=== PATIENT | male | born 1995 | race Caucasian/White ===

== ENCOUNTER 2017-02-20 19:03 | Emergency (ER) | payer SELFPAY ==
[~2017-02-20] VITALS: Ht 188 cm; Wt 86.2 kg
[2017-02-20] MEDS ORDERED: oxyCODONE/APAP 5/325 1 TAB TABLET PO ONE (19:30)
[2017-02-20] MEDS ORDERED: fentaNYL PF VIAL 100 MCG/2 ML VIAL IV ONE (19:30)
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
[2017-02-20 19:37] LABS: BASO # 0.1 x10^3/uL (0.0-0.2); BASO % 1 % (0-3); EOS % 1 % (0-3); HEMATOCRIT 42.9 % (39.0-53.0); HEMOGLOBIN 14.6 g/dL (13.0-17.5); LYMPH # 1.9 x10^3/uL (1.0-4.8); LYMPH % 20 % (24-48); MEAN CORPUSCULAR HEMOGLOBIN 32 pg (25-35); MEAN CORPUSCULAR HGB CONC 34 g/dL (31-37); MEAN CORPUSCULAR VOLUME 93 fL (79-100); MONO % 4 % (0-9); NEUT % 73 % (31-73); PLATELET COUNT 163 x10^3/uL (140-400); WHITE BLOOD COUNT 9.7 x10^3/uL (4.0-11.0)
[2017-02-20] MEDS ORDERED: ONDANSETRON PF 4 MG/2 ML VIAL. ONE (19:41)
[2017-02-20] MEDS ORDERED: ONDANSETRON PF 4 MG/2 ML VIAL. IV ONE (19:45)
--- NOTE | 2017-02-20 19:45 | RAD ---
Indication: Left eye trauma and headache. Axial imaging through the orbits was performed without contrast. Sagittal and coronal reformations were also performed. One or more of the following individualized dose reduction techniques were utilized for this examination: 1. Automated exposure control 2. Adjustment of the mA and/or kV according to patient size 3. Use of iterative reconstruction technique There is a large amount of preseptal gas on the left. There is a fracture through the medial wall of the left orbit. The lateral wall appears intact. The orbital floor appears intact. Both globes are unremarkable. No retro-orbital hematoma is identified. There is mucosal thickening of ethmoid air cells. Trace mucosal thickening of the maxillary sinuses is seen. No displaced nasal bone fracture is identified. There are postop changes of the right frontal sinus anterior wall. Sphenoid and mastoids are well aerated. IMPRESSION: Left medial orbital wall fracture with a large amount of preseptal gas. No other significant abnormality is detected. Electronically signed by: Po Cuadra MD (02/20/2017 7:42 PM)
[2017-02-20 19:47] LABS: INR 1.1 (0.8-1.1); PROTHROMBIN TIME PATIENT 13.7 SEC (11.7-14.0)
--- NOTE | 2017-02-20 19:47 | RAD ---
Indication: Left eye trauma and headache. Axial imaging through the brain was performed without contrast. One or more of the following individualized dose reduction techniques were utilized for this examination: 1. Automated exposure control 2. Adjustment of the mA and/or kV according to patient size 3. Use of iterative reconstruction technique Comparison is made with prior head CT from 03/07/2012. The ventricles and sulci are within normal limits. No sulcal effacement, midline shift or hemorrhage is detected. The cisterns are patent. Fracture through the left orbit medial wall and preseptal gas is noted and described on CT orbit study. IMPRESSION: No acute intracranial process is detected. Electronically signed by: Po Cuadra MD (02/20/2017 7:43 PM)
[2017-02-20 19:58] LABS: CALCIUM 8.9 mg/dL (8.5-10.1); CREATININE 1.2 mg/dL (0.7-1.3); GFR 75.7; POTASSIUM 3.8 mmol/L (3.5-5.1)
[2017-02-20 20:03] LABS: ALBUMIN 4.2 g/dL (3.4-5.0); ALBUMIN/GLOBULIN RATIO 1.4 (1.0-1.7); TOTAL BILIRUBIN 0.3 mg/dL (0.2-1.0); TOTAL PROTEIN 7.3 g/dL (6.4-8.2)
[2017-02-20 20:25] VITALS: BP 95/56
[2017-02-20] MEDS ORDERED: OXYC-323 PO (20:42)
[2017-02-20] MEDS ORDERED: ONDA4TAB10 PO (20:42)
[2017-02-20] MEDS ORDERED: AMOX1TAB61 PO (20:42)
== END 2017-02-20 20:45 | disposition home or self-care (01) ==
LOC: ER 19:03
DX: S02.82XA Fracture of other specified skull and facial bones, left side, initial encounter for closed fracture (principal); F10.10 Alcohol abuse, uncomplicated; F12.10 Cannabis abuse, uncomplicated; Z98.890 Other specified postprocedural states; W52.XXXA Crushed, pushed or stepped on by crowd or human stampede, initial encounter; Y93.89 Activity, other specified; Y92.89 Other specified places as the place of occurrence of the external cause; Y99.8 Other external cause status
CPT/HCPCS: 36415; 70450; 70480; 80053; 80320; 85027; 85610; 85730; 96374; 96375; 99285; J2405; J3010; G0480

== ENCOUNTER 2021-04-23 18:52 | Observation (INO) | payer BC ==
[~2021-04-23] VITALS: Ht 188 cm; Wt 88.1 kg
[~2021-04-23 18:52] MED LIST: AMOX1TAB61 PO; ONDA4TAB10 PO; OXYC1TAB15 PO
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
[2021-04-23 19:06] LABS: BASO # 0.1 x10^3/uL (0.0-0.2); BASO % 1 % (0-3); EOS # 0.3 x10^3/uL (0.0-0.7); EOS % 3 % (0-3); HEMATOCRIT 42.3 % (39.0-53.0); HEMOGLOBIN 14.6 g/dL (13.0-17.5); LYMPH % 25 % (24-48); MEAN CORPUSCULAR HEMOGLOBIN 32 pg (25-35); MEAN CORPUSCULAR HGB CONC 35 g/dL (31-37); MEAN CORPUSCULAR VOLUME 93 fL (79-100); MONO # 0.7 x10^3/uL (0.0-1.1); MONO % 8 % (0-9); NEUT # 5.3 x10^3/uL (1.8-7.7); NEUT % 64 % (31-73); PLATELET COUNT 225 x10^3/uL (140-400); RED BLOOD COUNT 4.53 x10^6/uL (4.30-5.70); WHITE BLOOD COUNT 8.4 x10^3/uL (4.0-11.0)
[2021-04-23] MEDS ORDERED: DIPH,PERTUSS(ACELL),TET VAC/PF 0.5 ML SYRINGE. VAX IM ONE (19:15)
[2021-04-23] MEDS ORDERED: fentaNYL PF VIAL 100 MCG/2 ML VIAL IVP ONE (19:15)
[2021-04-23 19:16] LABS: PROTHROMBIN TIME PATIENT 13.6 SEC (11.7-14.0)
[2021-04-23 19:20] LABS: CREATININE 1.2 mg/dL (0.7-1.3); GFR 73.2; POTASSIUM 3.9 mmol/L (3.5-5.1)
[2021-04-23 19:27] LABS: ALBUMIN 3.9 g/dL (3.4-5.0); ALBUMIN/GLOBULIN RATIO 1.4 (1.0-1.7); TOTAL BILIRUBIN 0.3 mg/dL (0.2-1.0); TOTAL PROTEIN 6.7 g/dL (6.4-8.2)
[2021-04-23] MEDS ORDERED: ONDANSETRON PF 4 MG/2 ML VIAL. IVP ONE (19:45)
[2021-04-23] MEDS ORDERED: HYDROmorphone 2 MG/ML VIAL IVP ONE (19:45)
--- NOTE | 2021-04-23 19:53 | PDOC1 ---
History and Physical Date of Admission Date of Admission DATE: 04/23/21 TIME: 19:38 Identification/Chief Complaint Chief Complaint Snakebite Source Source: Patient History of Present Illness History of Present Illness Patient is a 25-year-old male with no significant past medical history, who presents to the ED via EMS for evaluation after snakebite this evening. Patient states he was getting in the bathtub around 6 PM to take a shower, when he reports seeing a copperhead snake bite his left foot. Labs on admission were largely unremarkable. He received tetanus and fentanyl in the ED. He has not received his COVID-19 vaccination. I discussion with Dr. Coulter, will admit patient for observation and pain management overnight. Past Medical History Past Medical History Denies significant past medical history Past Surgical History Past Surgical History right eye surgery, facial surgery Family History Family History Denies significant family history Social History Smoke: 1 pack per day ALCOHOL: heavy Drugs: Marijuana Current Medications Current Medications Current Medications Fentanyl Citrate (Fentanyl 2ml Vial) 100 mcg 1X ONCE IVP Last administered on 04/23/21at 19:26; Start 04/23/21 at 19:15; Stop 04/23/21 at 19:16; Status DC Diphtheria/ Tetanus/Acell Pertussis (ADACEL TDap SYRINGE) 0.5 ml ONCE ONCE VAX IM Last administered on 04/23/21at 19:24; Start 04/23/21 at 19:15; Stop 04/23/21 at 19:16; Status DC Active Scripts Active Augmentin 875-125 Tablet (Amoxicillin/Potassium Clav) 1 Each Tablet 1 Tab PO BID Zofran Odt (Ondansetron) 4 Mg Tab.rapdis 4 Mg PO BID PRN Percocet 5-325 Mg Tablet (Oxycodone/Acetaminophen) 1 Each Tablet 1 Tab PO PRN Q6HRS PRN Allergies Allergies: Coded Allergies: codeine (Verified Allergy, Intermediate, nausea and vomiting, 04/23/21) ROS Review of System GENERAL: Copperhead snake bite. No history of weight change, weakness or fevers. SKIN: No bruising, hair changes or rashes. EYES: No blurred, double or loss of vision. NOSE AND THROAT: No history of nosebleeds, hoarseness or sore throat. HEART: Denies chest pain, denies palpitations. LUNGS: Denies cough, hemoptysis, wheezing or shortness of breath. GASTROINTESTINAL: Denies nausea, vomiting, abdominal pain. GENITOURINARY: Denies dysuria, frequency, urgency, hematuria. NEUROLOGIC: Denies history of numbness, tingling, tremor or weakness. PSYCHIATRIC: Denies anxiety, denies depression. ENDOCRINE: No history of heat or cold intolerance, polyuria or polydipsia. EXTREMITIES: Right foot pain. Denies muscle weakness, joint pain, pain on walking or stiffness. Physical Exam Physical Exam General: Alert, Oriented X3, Cooperative, moderate distress HEENT: PERRLA, EOMI Lungs: Clear to auscultation, Normal air movement Heart: RRR, no murmurs Cardiovascular: S1, S2 Abdomen: Normal bowel sounds, Soft, No tenderness Extremities: Left foot with minimal swelling. No clubbing, No cyanosis Skin: No rashes, No significant lesion Neuro: Normal speech, Normal tone, Sensation intact Psych/Mental Status: Mental status NL, Mood NL Vitals Vitals Vital Signs Date Time Temp Pulse Resp B/P (MAP) Pulse Ox O2 Delivery O2 Flow Rate FiO2 04/23/21 19:26 12 100 Room Air 04/23/21 18:52 98.5 61 132/56 (69) 98.5 Labs Labs Laboratory Tests Test 04/23/21 18:55 White Blood Count 8.4 x10^3/uL (4.0-11.0) Red Blood Count 4.53 x10^6/uL (4.30-5.70) Hemoglobin 14.6 g/dL (13.0-17.5) Hematocrit 42.3 % (39.0-53.0) Mean Corpuscular Volume 93 fL (79-100) Mean Corpuscular Hemoglobin 32 pg (25-35) Mean Corpuscular Hemoglobin Concent 35 g/dL (31-37) Red Cell Distribution Width 13.0 % (11.5-14.5) Platelet Count 225 x10^3/uL (140-400) Neutrophils (%) (Auto) 64 % (31-73) Lymphocytes (%) (Auto) 25 % (24-48) Monocytes (%) (Auto) 8 % (0-9) Eosinophils (%) (Auto) 3 % (0-3) Basophils (%) (Auto) 1 % (0-3) Neutrophils # (Auto) 5.3 x10^3/uL (1.8-7.7) Lymphocytes # (Auto) 2.0 x10^3/uL (1.0-4.8) Monocytes # (Auto) 0.7 x10^3/uL (0.0-1.1) Eosinophils # (Auto) 0.3 x10^3/uL (0.0-0.7) Basophils # (Auto) 0.1 x10^3/uL (0.0-0.2) Prothrombin Time 13.6 SEC (11.7-14.0) Prothromb Time International Ratio 1.0 (0.8-1.1) Fibrinogen 298 mg/dL (200-440) Sodium Level 138 mmol/L (136-145) Potassium Level 3.9 mmol/L (3.5-5.1) Chloride Level 103 mmol/L (98-107) Carbon Dioxide Level 28 mmol/L (21-32) Anion Gap 7 (6-14) Blood Urea Nitrogen 17 mg/dL (8-26) Creatinine 1.2 mg/dL (0.7-1.3) Estimated GFR (Cockcroft-Gault) 73.2 BUN/Creatinine Ratio 14 (6-20) Glucose Level 101 mg/dL (70-99) Calcium Level 9.0 mg/dL (8.5-10.1) Total Bilirubin 0.3 mg/dL (0.2-1.0) Aspartate Amino Transf (AST/SGOT) 23 U/L (15-37) Alanine Aminotransferase (ALT/SGPT) 40 U/L (16-63) Alkaline Phosphatase 95 U/L (46-116) Total Protein 6.7 g/dL (6.4-8.2) Albumin 3.9 g/dL (3.4-5.0) Albumin/Globulin Ratio 1.4 (1.0-1.7) Laboratory Tests Test 04/23/21 18:55 White Blood Count 8.4 x10^3/uL (4.0-11.0) Red Blood Count 4.53 x10^6/uL (4.30-5.70) Hemoglobin 14.6 g/dL (13.0-17.5) Hematocrit 42.3 % (39.0-53.0) Mean Corpuscular Volume 93 fL (79-100) Mean Corpuscular Hemoglobin 32 pg (25-35) Mean Corpuscular Hemoglobin Concent 35 g/dL (31-37) Red Cell Distribution Width 13.0 % (11.5-14.5) Platelet Count 225 x10^3/uL (140-400) Neutrophils (%) (Auto) 64 % (31-73) Lymphocytes (%) (Auto) 25 % (24-48) Monocytes (%) (Auto) 8 % (0-9) Eosinophils (%) (Auto) 3 % (0-3) Basophils (%) (Auto) 1 % (0-3) Neutrophils # (Auto) 5.3 x10^3/uL (1.8-7.7) Lymphocytes # (Auto) 2.0 x10^3/uL (1.0-4.8) Monocytes # (Auto) 0.7 x10^3/uL (0.0-1.1) Eosinophils # (Auto) 0.3 x10^3/uL (0.0-0.7) Basophils # (Auto) 0.1 x10^3/uL (0.0-0.2) Prothrombin Time 13.6 SEC (11.7-14.0) Prothromb Time International Ratio 1.0 (0.8-1.1) Fibrinogen 298 mg/dL (200-440) Sodium Level 138 mmol/L (136-145) Potassium Level 3.9 mmol/L (3.5-5.1) Chloride Level 103 mmol/L (98-107) Carbon Dioxide Level 28 mmol/L (21-32) Anion Gap 7 (6-14) Blood Urea Nitrogen 17 mg/dL (8-26) Creatinine 1.2 mg/dL (0.7-1.3) Estimated GFR (Cockcroft-Gault) 73.2 BUN/Creatinine Ratio 14 (6-20) Glucose Level 101 mg/dL (70-99) Calcium Level 9.0 mg/dL (8.5-10.1) Total Bilirubin 0.3 mg/dL (0.2-1.0) Aspartate Amino Transf (AST/SGOT) 23 U/L (15-37) Alanine Aminotransferase (ALT/SGPT) 40 U/L (16-63) Alkaline Phosphatase 95 U/L (46-116) Total Protein 6.7 g/dL (6.4-8.2) Albumin 3.9 g/dL (3.4-5.0) Albumin/Globulin Ratio 1.4 (1.0-1.7) VTE Prophylaxis Ordered VTE Prophylaxis Devices: Yes VTE Pharmacological Prophylaxi: No Assessment/Plan Assessment/Plan Copperhead snake bite Plan: I had discussion with Dr. Coulter in the ED; will admit patient for observation and keep in the ER for at least 6 hours to monitor for swelling and need for antiantivenom Tdap provided in the ED We will provide pain management No fluid to culture, no need for empiric antibiotics at this time. FEN - Regular diet PPX - compression stockings FULL CODE Dispo - observation for above Justifications for Admission Other Justification TAYLOR JEFFRIES MD Apr 23, 2021 19:53
[2021-04-23] MEDS ORDERED: ZOLPIDEM 5 MG TABLET. PO PRN (20:00)
[2021-04-23] MEDS ORDERED: oxyCODONE/APAP 5/325 1 TAB TABLET PO PRN (20:00)
[2021-04-23] MEDS ORDERED: MAGNESIUM HYDROXIDE 2,400 MG/30 ML ORAL.SUSP. PO PRN (20:00)
[2021-04-23] MEDS ORDERED: ACETAMINOPHEN 325 MG TABLET. PO PRN (20:00)
[2021-04-23] MEDS ORDERED: MORPHINE SULFATE 10 MG/ML VIAL. IV PRN (20:00)
[2021-04-23] MEDS ORDERED: oxyCODONE IR 5 MG TABLET PO PRN (20:00)
[2021-04-23] MEDS ORDERED: IBUPROFEN 400 MG TABLET. PO PRN (20:00)
[2021-04-23] MEDS ORDERED: ONDANSETRON PF 4 MG/2 ML VIAL. IVP PRN (20:00)
[2021-04-23] MEDS ORDERED: HYDROcodone/APAP 5/325MG 1 TAB TABLET PO PRN (20:00)
[2021-04-23 21:02] LABS: BASO # 0.1 x10^3/uL (0.0-0.2); BASO % 1 % (0-3); EOS # 0.3 x10^3/uL (0.0-0.7); EOS % 4 % (0-3); HEMATOCRIT 42.4 % (39.0-53.0); HEMOGLOBIN 14.4 g/dL (13.0-17.5); LYMPH # 1.9 x10^3/uL (1.0-4.8); LYMPH % 27 % (24-48); MEAN CORPUSCULAR HEMOGLOBIN 32 pg (25-35); MEAN CORPUSCULAR HGB CONC 34 g/dL (31-37); MEAN CORPUSCULAR VOLUME 94 fL (79-100); MONO # 0.5 x10^3/uL (0.0-1.1); MONO % 7 % (0-9); NEUT # 4.5 x10^3/uL (1.8-7.7); NEUT % 62 % (31-73); PLATELET COUNT 200 x10^3/uL (140-400); RED CELL DISTRIBUTION WIDTH 13.3 % (11.5-14.5); WHITE BLOOD COUNT 7.3 x10^3/uL (4.0-11.0)
[2021-04-23 21:09] LABS: PROTHROMBIN TIME PATIENT 13.8 SEC (11.7-14.0)
[2021-04-23 21:10] LABS: CALCIUM 8.6 mg/dL (8.5-10.1); CREATININE 1.1 mg/dL (0.7-1.3); GFR 80.9; POTASSIUM 3.7 mmol/L (3.5-5.1)
[2021-04-23 21:16] LABS: ALBUMIN 3.7 g/dL (3.4-5.0); ALBUMIN/GLOBULIN RATIO 1.4 (1.0-1.7); TOTAL BILIRUBIN 0.2 mg/dL (0.2-1.0); TOTAL PROTEIN 6.3 g/dL (6.4-8.2)
[2021-04-23 22:40] VITALS: BP 120/65
[2021-04-23] MEDS ORDERED: FAMOTIDINE 20 MG TABLET. PO ONE (23:30)
[2021-04-24 02:08] LABS: BASO % 1 % (0-3); EOS # 0.3 x10^3/uL (0.0-0.7); EOS % 4 % (0-3); HEMATOCRIT 43.1 % (39.0-53.0); HEMOGLOBIN 14.7 g/dL (13.0-17.5); LYMPH # 1.8 x10^3/uL (1.0-4.8); LYMPH % 25 % (24-48); MEAN CORPUSCULAR HEMOGLOBIN 32 pg (25-35); MEAN CORPUSCULAR HGB CONC 34 g/dL (31-37); MEAN CORPUSCULAR VOLUME 95 fL (79-100); MONO # 0.5 x10^3/uL (0.0-1.1); MONO % 7 % (0-9); NEUT # 4.5 x10^3/uL (1.8-7.7); NEUT % 63 % (31-73); PLATELET COUNT 186 x10^3/uL (140-400); RED BLOOD COUNT 4.56 x10^6/uL (4.30-5.70); RED CELL DISTRIBUTION WIDTH 13.2 % (11.5-14.5); WHITE BLOOD COUNT 7.2 x10^3/uL (4.0-11.0)
[2021-04-24 02:17] LABS: PROTHROMBIN TIME PATIENT 13.8 SEC (11.7-14.0)
[2021-04-24 02:23] LABS: ALBUMIN 3.6 g/dL (3.4-5.0); ALBUMIN/GLOBULIN RATIO 1.4 (1.0-1.7); CALCIUM 8.7 mg/dL (8.5-10.1); GFR 90.3; POTASSIUM 3.5 mmol/L (3.5-5.1); TOTAL BILIRUBIN 0.3 mg/dL (0.2-1.0); TOTAL PROTEIN 6.2 g/dL (6.4-8.2)
[2021-04-24 03:00] VITALS: BP 101/49
[2021-04-24 07:00] VITALS: BP 122/57
--- NOTE | 2021-04-24 09:00 | PDOC ---
PROGRESS NOTES Date of Service: DATE: 04/24/21 TIME: 09:00 Chief Complaint Chief Complaint VTE Prophylaxis Ordered VTE Prophylaxis Devices: Yes VTE Pharmacological Prophylaxi: No Assessment/Plan Assessment/Plan Copperhead snake bite Plan: admit patient for observation and keep in the ER for at least 6 hours to monitor for swelling and need for antiantivenom Tdap provided in the ED We will provide pain management No fluid to culture, no need for empiric antibiotics at this time. FEN - Regular diet PPX - compression stockings FULL CODE Dispo - observation for above Justifications for Admission Justifications for Admission Other Justification History of Present Illness History of Present Illness Identification/Chief Complaint Chief Complaint Snakebite Source Source: Patient History of Present Illness History of Present Illness Patient is a 25-year-old male with no significant past medical history, who presents to the ED via EMS for evaluation after snakebite this evening. Patient states he was getting in the bathtub around 6 PM to take a shower, when he reports seeing a copperhead snake bite his left foot. Labs on admission were largely unremarkable. He received tetanus and fentanyl in the ED. He has not received his COVID-19 vaccination. I discussion with Dr. Coulter, will admit patient for observation and pain management overnight. Past Medical History Past Medical History Denies significant past medical history Past Surgical History Past Surgical History right eye surgery, facial surgery Family History Family History Denies significant family history Social History Smoke: 1 pack per day ALCOHOL: heavy Drugs: Marijuana Current Medications Current Medications Current Medications Fentanyl Citrate (Fentanyl 2ml Vial) 100 mcg 1X ONCE IVP Last administered on 04/23/21at 19:26; Start 04/23/21 at 19:15; Stop 04/23/21 at 19:16; Status DC Diphtheria/ Tetanus/Acell Pertussis (ADACEL TDap SYRINGE) 0.5 ml ONCE ONCE VAX IM Last administered on 04/23/21at 19:24; Start 04/23/21 at 19:15; Stop 04/23/21 at 19:16; Status DC Active Scripts Active Augmentin 875-125 Tablet (Amoxicillin/Potassium Clav) 1 Each Tablet 1 Tab PO BID Zofran Odt (Ondansetron) 4 Mg Tab.rapdis 4 Mg PO BID PRN Percocet 5-325 Mg Tablet (Oxycodone/Acetaminophen) 1 Each Tablet 1 Tab PO PRN Q6HRS PRN Allergies Allergies: Coded Allergies: codeine (Verified Allergy, Intermediate, nausea and vomiting, 04/23/21) ROS Review of System GENERAL: Copperhead snake bite. No history of weight change, weakness or fevers. SKIN: No bruising, hair changes or rashes. EYES: No blurred, double or loss of vision. NOSE AND THROAT: No history of nosebleeds, hoarseness or sore throat. HEART: Denies chest pain, denies palpitations. LUNGS: Denies cough, hemoptysis, wheezing or shortness of breath. GASTROINTESTINAL: Denies nausea, vomiting, abdominal pain. GENITOURINARY: Denies dysuria, frequency, urgency, hematuria. NEUROLOGIC: Denies history of numbness, tingling, tremor or weakness. PSYCHIATRIC: Denies anxiety, denies depression. ENDOCRINE: No history of heat or cold intolerance, polyuria or polydipsia. EXTREMITIES: Right foot pain. Denies muscle weakness, joint pain, pain on walking or stiffness. Vitals Vitals Vital Signs Date Time Temp Pulse Resp B/P (MAP) Pulse Ox O2 Delivery O2 Flow Rate FiO2 04/24/21 07:00 97.4 56 18 122/57 (78) 97 Room Air 97.4 Physical Exam Physical Exam General: Alert, Oriented X3, Cooperative, no distress HEENT: PERRLA, EOMI Lungs: Clear to auscultation, Normal air movement Heart: RRR, no murmurs Cardiovascular: S1, S2 Abdomen: Normal bowel sounds, Soft, No tenderness Extremities: Left foot with minimal swelling. No clubbing, No cyanosis Skin: No rashes, No significant lesion mild swelling present Neuro: Normal speech, Normal tone, Sensation intact Psych/Mental Status: Mental status NL, Mood NL General: Alert, Oriented X3, Cooperative, No acute distress Heart: Regular rate Lungs: Clear Abdomen: Soft Extremities: No cyanosis Skin: No significant lesion Labs LABS Laboratory Tests Test 04/23/21 18:55 04/23/21 20:54 04/24/21 02:00 White Blood Count 8.4 x10^3/uL (4.0-11.0) 7.3 x10^3/uL (4.0-11.0) 7.2 x10^3/uL (4.0-11.0) Red Blood Count 4.53 x10^6/uL (4.30-5.70) 4.50 x10^6/uL (4.30-5.70) 4.56 x10^6/uL (4.30-5.70) Hemoglobin 14.6 g/dL (13.0-17.5) 14.4 g/dL (13.0-17.5) 14.7 g/dL (13.0-17.5) Hematocrit 42.3 % (39.0-53.0) 42.4 % (39.0-53.0) 43.1 % (39.0-53.0) Mean Corpuscular Volume 93 fL (79-100) 94 fL (79-100) 95 fL (79-100) Mean Corpuscular Hemoglobin 32 pg (25-35) 32 pg (25-35) 32 pg (25-35) Mean Corpuscular Hemoglobin Concent 35 g/dL (31-37) 34 g/dL (31-37) 34 g/dL (31-37) Red Cell Distribution Width 13.0 % (11.5-14.5) 13.3 % (11.5-14.5) 13.2 % (11.5-14.5) Platelet Count 225 x10^3/uL (140-400) 200 x10^3/uL (140-400) 186 x10^3/uL (140-400) Neutrophils (%) (Auto) 64 % (31-73) 62 % (31-73) 63 % (31-73) Lymphocytes (%) (Auto) 25 % (24-48) 27 % (24-48) 25 % (24-48) Monocytes (%) (Auto) 8 % (0-9) 7 % (0-9) 7 % (0-9) Eosinophils (%) (Auto) 3 % (0-3) 4 % (0-3) 4 % (0-3) Basophils (%) (Auto) 1 % (0-3) 1 % (0-3) 1 % (0-3) Neutrophils # (Auto) 5.3 x10^3/uL (1.8-7.7) 4.5 x10^3/uL (1.8-7.7) 4.5 x10^3/uL (1.8-7.7) Lymphocytes # (Auto) 2.0 x10^3/uL (1.0-4.8) 1.9 x10^3/uL (1.0-4.8) 1.8 x10^3/uL (1.0-4.8) Monocytes # (Auto) 0.7 x10^3/uL (0.0-1.1) 0.5 x10^3/uL (0.0-1.1) 0.5 x10^3/uL (0.0-1.1) Eosinophils # (Auto) 0.3 x10^3/uL (0.0-0.7) 0.3 x10^3/uL (0.0-0.7) 0.3 x10^3/uL (0.0-0.7) Basophils # (Auto) 0.1 x10^3/uL (0.0-0.2) 0.1 x10^3/uL (0.0-0.2) 0.0 x10^3/uL (0.0-0.2) Prothrombin Time 13.6 SEC (11.7-14.0) 13.8 SEC (11.7-14.0) 13.8 SEC (11.7-14.0) Prothromb Time International Ratio 1.0 (0.8-1.1) 1.1 (0.8-1.1) 1.1 (0.8-1.1) Fibrinogen 298 mg/dL (200-440) 294 mg/dL (200-440) 289 mg/dL (200-440) Sodium Level 138 mmol/L (136-145) 138 mmol/L (136-145) 138 mmol/L (136-145) Potassium Level 3.9 mmol/L (3.5-5.1) 3.7 mmol/L (3.5-5.1) 3.5 mmol/L (3.5-5.1) Chloride Level 103 mmol/L (98-107) 104 mmol/L (98-107) 107 mmol/L (98-107) Carbon Dioxide Level 28 mmol/L (21-32) 30 mmol/L (21-32) 26 mmol/L (21-32) Anion Gap 7 (6-14) 4 (6-14) 5 (6-14) Blood Urea Nitrogen 17 mg/dL (8-26) 17 mg/dL (8-26) 16 mg/dL (8-26) Creatinine 1.2 mg/dL (0.7-1.3) 1.1 mg/dL (0.7-1.3) 1.0 mg/dL (0.7-1.3) Estimated GFR (Cockcroft-Gault) 73.2 80.9 90.3 BUN/Creatinine Ratio 14 (6-20) 15 (6-20) 16 (6-20) Glucose Level 101 mg/dL (70-99) 108 mg/dL (70-99) 118 mg/dL (70-99) Calcium Level 9.0 mg/dL (8.5-10.1) 8.6 mg/dL (8.5-10.1) 8.7 mg/dL (8.5-10.1) Total Bilirubin 0.3 mg/dL (0.2-1.0) 0.2 mg/dL (0.2-1.0) 0.3 mg/dL (0.2-1.0) Aspartate Amino Transf (AST/SGOT) 23 U/L (15-37) 16 U/L (15-37) 18 U/L (15-37) Alanine Aminotransferase (ALT/SGPT) 40 U/L (16-63) 38 U/L (16-63) 35 U/L (16-63) Alkaline Phosphatase 95 U/L (46-116) 87 U/L (46-116) 88 U/L (46-116) Total Protein 6.7 g/dL (6.4-8.2) 6.3 g/dL (6.4-8.2) 6.2 g/dL (6.4-8.2) Albumin 3.9 g/dL (3.4-5.0) 3.7 g/dL (3.4-5.0) 3.6 g/dL (3.4-5.0) Albumin/Globulin Ratio 1.4 (1.0-1.7) 1.4 (1.0-1.7) 1.4 (1.0-1.7) Assessment and Plan Assessmemt and Plan Problems Medical Problems: (1) Venomous snake bite Status: Acute Abstract Background: Crotalidae Polyvalent Immune Shaji (Ovine) has been the only antivenom commercially available in the [place] since 2006 for treatment of Crotalinae envenomation. Late coagulopathy can occur or recur after clearance of Shaji antivenom, often after hospital discharge, lasting in some cases more than 2 weeks. There have been serious, even fatal, bleeding complications associated with recurrence phenomena. Frequent follow-up is required, and additional intervention or hospitalization is often necessary. F(ab')2 immunoglobulin derivatives have longer plasma half life than do Shaji. We hypothesized that F(ab')2 antivenom would be superior to Shaji in the prevention of late coagulopathy following treatment of patients with Crotalinae envenomation. Methods: We conducted a prospective, double-blind, randomized clinical trial, comparing late coagulopathy in snakebitten patients treated with F(ab')2 with maintenance doses [F(ab')2/F(ab')2], or F(ab')2 with placebo maintenance doses [F(ab')2/placebo], versus Shaji with maintenance doses [Shaji/Shaji]. The primary efficacy endpoint was coagulopathy (platelet count < 150 K/mm(3), fibrinogen level < 150 mg/dL) between end of maintenance dosing and day 8. Results: 121 patients were randomized at 18 clinical sites and received at least one dose of study drug. 114 completed the study. Of these, 11/37 (29.7%) in the Shaji/Shaji cohort experienced late coagulopathy versus 4/39 (10.3%, p < 0.05) in the F(ab')2/F(ab')2 cohort and 2/38 (5.3%, p < 0.05) in the F(ab')2/placebo cohort. The lowest heterologous protein exposure was with F(ab')2/placebo. No serious adverse events were related to study drug. In each study arm, one patient experienced an acute serum reaction and one experienced serum sickness. Conclusions: In this study, management of coagulopathic Crotalinae envenomation with [id number] F(ab')2 antivenom, with or without maintenance dosing, reduced the risk of subacute coagulopathy and bleeding following treatment of envenomation. Keywords: Antivenins; Snakes; Toxinology. Abstract Our objective was to determine the prevalence of poisonous snakebite victims admitted to a regional trauma center in [facility] over a 10-year period, as well as the type of snake, grade of envenomation, treatment administered, morbidity and mortality, and outcome. Records of patients admitted to the center for snakebite from a [place] catch[place] area during the 10-year period (September 1983 to September 1993) were retroactively reviewed. Sixty-three (63) bites in 62 victims of venomous snakebites were treated. The snake distribution was rattlesnake: 19 (30%), copperhead: 18 (29%), cottonmouth moccasin: 8 (12%), unknown: 18 (29%). Envenomation grades were Grade I: 20 (32%), Grade II: 24 (38%), Grade III: 10 (16%), and Grade IV: 9 (14%). Fourteen of 19 (74%) Grades III and IV envenomations were from rattlesnakes. Antivenin was used in all Grade IV and half of the Grade III envenomations. Antivenin was administered within 3 hours of injury in all but one case. Five patients had surgery. Two patients (both Grade I) developed anaphylaxes from antivenin given before hospitalization. All patients recovered. An average of 6 snakebites were treated each year. Expeditious transport, attention to the type of snake inflicting the bite, and judicious use of antivenin will result in a favorable outcome for the snakebite victim. Comment Review of Relevant I have reviewed the following items jamison (where applicable) has been applied. Labs Laboratory Tests Test 04/23/21 18:55 04/23/21 20:54 04/24/21 02:00 White Blood Count 8.4 x10^3/uL (4.0-11.0) 7.3 x10^3/uL (4.0-11.0) 7.2 x10^3/uL (4.0-11.0) Red Blood Count 4.53 x10^6/uL (4.30-5.70) 4.50 x10^6/uL (4.30-5.70) 4.56 x10^6/uL (4.30-5.70) Hemoglobin 14.6 g/dL (13.0-17.5) 14.4 g/dL (13.0-17.5) 14.7 g/dL (13.0-17.5) Hematocrit 42.3 % (39.0-53.0) 42.4 % (39.0-53.0) 43.1 % (39.0-53.0) Mean Corpuscular Volume 93 fL (79-100) 94 fL (79-100) 95 fL (79-100) Mean Corpuscular Hemoglobin 32 pg (25-35) 32 pg (25-35) 32 pg (25-35) Mean Corpuscular Hemoglobin Concent 35 g/dL (31-37) 34 g/dL (31-37) 34 g/dL (31-37) Red Cell Distribution Width 13.0 % (11.5-14.5) 13.3 % (11.5-14.5) 13.2 % (11.5-14.5) Platelet Count 225 x10^3/uL (140-400) 200 x10^3/uL (140-400) 186 x10^3/uL (140-400) Neutrophils (%) (Auto) 64 % (31-73) 62 % (31-73) 63 % (31-73) Lymphocytes (%) (Auto) 25 % (24-48) 27 % (24-48) 25 % (24-48) Monocytes (%) (Auto) 8 % (0-9) 7 % (0-9) 7 % (0-9) Eosinophils (%) (Auto) 3 % (0-3) 4 % (0-3) 4 % (0-3) Basophils (%) (Auto) 1 % (0-3) 1 % (0-3) 1 % (0-3) Neutrophils # (Auto) 5.3 x10^3/uL (1.8-7.7) 4.5 x10^3/uL (1.8-7.7) 4.5 x10^3/uL (1.8-7.7) Lymphocytes # (Auto) 2.0 x10^3/uL (1.0-4.8) 1.9 x10^3/uL (1.0-4.8) 1.8 x10^3/uL (1.0-4.8) Monocytes # (Auto) 0.7 x10^3/uL (0.0-1.1) 0.5 x10^3/uL (0.0-1.1) 0.5 x10^3/uL (0.0-1.1) Eosinophils # (Auto) 0.3 x10^3/uL (0.0-0.7) 0.3 x10^3/uL (0.0-0.7) 0.3 x10^3/uL (0.0-0.7) Basophils # (Auto) 0.1 x10^3/uL (0.0-0.2) 0.1 x10^3/uL (0.0-0.2) 0.0 x10^3/uL (0.0-0.2) Prothrombin Time 13.6 SEC (11.7-14.0) 13.8 SEC (11.7-14.0) 13.8 SEC (11.7-14.0) Prothromb Time International Ratio 1.0 (0.8-1.1) 1.1 (0.8-1.1) 1.1 (0.8-1.1) Fibrinogen 298 mg/dL (200-440) 294 mg/dL (200-440) 289 mg/dL (200-440) Sodium Level 138 mmol/L (136-145) 138 mmol/L (136-145) 138 mmol/L (136-145) Potassium Level 3.9 mmol/L (3.5-5.1) 3.7 mmol/L (3.5-5.1) 3.5 mmol/L (3.5-5.1) Chloride Level 103 mmol/L (98-107) 104 mmol/L (98-107) 107 mmol/L (98-107) Carbon Dioxide Level 28 mmol/L (21-32) 30 mmol/L (21-32) 26 mmol/L (21-32) Anion Gap 7 (6-14) 4 (6-14) 5 (6-14) Blood Urea Nitrogen 17 mg/dL (8-26) 17 mg/dL (8-26) 16 mg/dL (8-26) Creatinine 1.2 mg/dL (0.7-1.3) 1.1 mg/dL (0.7-1.3) 1.0 mg/dL (0.7-1.3) Estimated GFR (Cockcroft-Gault) 73.2 80.9 90.3 BUN/Creatinine Ratio 14 (6-20) 15 (6-20) 16 (6-20) Glucose Level 101 mg/dL (70-99) 108 mg/dL (70-99) 118 mg/dL (70-99) Calcium Level 9.0 mg/dL (8.5-10.1) 8.6 mg/dL (8.5-10.1) 8.7 mg/dL (8.5-10.1) Total Bilirubin 0.3 mg/dL (0.2-1.0) 0.2 mg/dL (0.2-1.0) 0.3 mg/dL (0.2-1.0) Aspartate Amino Transf (AST/SGOT) 23 U/L (15-37) 16 U/L (15-37) 18 U/L (15-37) Alanine Aminotransferase (ALT/SGPT) 40 U/L (16-63) 38 U/L (16-63) 35 U/L (16-63) Alkaline Phosphatase 95 U/L (46-116) 87 U/L (46-116) 88 U/L (46-116) Total Protein 6.7 g/dL (6.4-8.2) 6.3 g/dL (6.4-8.2) 6.2 g/dL (6.4-8.2) Albumin 3.9 g/dL (3.4-5.0) 3.7 g/dL (3.4-5.0) 3.6 g/dL (3.4-5.0) Albumin/Globulin Ratio 1.4 (1.0-1.7) 1.4 (1.0-1.7) 1.4 (1.0-1.7) Laboratory Tests Test 04/23/21 18:55 04/23/21 20:54 04/24/21 02:00 White Blood Count 8.4 x10^3/uL (4.0-11.0) 7.3 x10^3/uL (4.0-11.0) 7.2 x10^3/uL (4.0-11.0) Red Blood Count 4.53 x10^6/uL (4.30-5.70) 4.50 x10^6/uL (4.30-5.70) 4.56 x10^6/uL (4.30-5.70) Hemoglobin 14.6 g/dL (13.0-17.5) 14.4 g/dL (13.0-17.5) 14.7 g/dL (13.0-17.5) Hematocrit 42.3 % (39.0-53.0) 42.4 % (39.0-53.0) 43.1 % (39.0-53.0) Mean Corpuscular Volume 93 fL (79-100) 94 fL (79-100) 95 fL (79-100) Mean Corpuscular Hemoglobin 32 pg (25-35) 32 pg (25-35) 32 pg (25-35) Mean Corpuscular Hemoglobin Concent 35 g/dL (31-37) 34 g/dL (31-37) 34 g/dL (31-37) Red Cell Distribution Width 13.0 % (11.5-14.5) 13.3 % (11.5-14.5) 13.2 % (11.5-14.5) Platelet Count 225 x10^3/uL (140-400) 200 x10^3/uL (140-400) 186 x10^3/uL (140-400) Neutrophils (%) (Auto) 64 % (31-73) 62 % (31-73) 63 % (31-73) Lymphocytes (%) (Auto) 25 % (24-48) 27 % (24-48) 25 % (24-48) Monocytes (%) (Auto) 8 % (0-9) 7 % (0-9) 7 % (0-9) Eosinophils (%) (Auto) 3 % (0-3) 4 % (0-3) 4 % (0-3) Basophils (%) (Auto) 1 % (0-3) 1 % (0-3) 1 % (0-3) Neutrophils # (Auto) 5.3 x10^3/uL (1.8-7.7) 4.5 x10^3/uL (1.8-7.7) 4.5 x10^3/uL (1.8-7.7) Lymphocytes # (Auto) 2.0 x10^3/uL (1.0-4.8) 1.9 x10^3/uL (1.0-4.8) 1.8 x10^3/uL (1.0-4.8) Monocytes # (Auto) 0.7 x10^3/uL (0.0-1.1) 0.5 x10^3/uL (0.0-1.1) 0.5 x10^3/uL (0.0-1.1) Eosinophils # (Auto) 0.3 x10^3/uL (0.0-0.7) 0.3 x10^3/uL (0.0-0.7) 0.3 x10^3/uL (0.0-0.7) Basophils # (Auto) 0.1 x10^3/uL (0.0-0.2) 0.1 x10^3/uL (0.0-0.2) 0.0 x10^3/uL (0.0-0.2) Prothrombin Time 13.6 SEC (11.7-14.0) 13.8 SEC (11.7-14.0) 13.8 SEC (11.7-14.0) Prothromb Time International Ratio 1.0 (0.8-1.1) 1.1 (0.8-1.1) 1.1 (0.8-1.1) Fibrinogen 298 mg/dL (200-440) 294 mg/dL (200-440) 289 mg/dL (200-440) Sodium Level 138 mmol/L (136-145) 138 mmol/L (136-145) 138 mmol/L (136-145) Potassium Level 3.9 mmol/L (3.5-5.1) 3.7 mmol/L (3.5-5.1) 3.5 mmol/L (3.5-5.1) Chloride Level 103 mmol/L (98-107) 104 mmol/L (98-107) 107 mmol/L (98-107) Carbon Dioxide Level 28 mmol/L (21-32) 30 mmol/L (21-32) 26 mmol/L (21-32) Anion Gap 7 (6-14) 4 (6-14) 5 (6-14) Blood Urea Nitrogen 17 mg/dL (8-26) 17 mg/dL (8-26) 16 mg/dL (8-26) Creatinine 1.2 mg/dL (0.7-1.3) 1.1 mg/dL (0.7-1.3) 1.0 mg/dL (0.7-1.3) Estimated GFR (Cockcroft-Gault) 73.2 80.9 90.3 BUN/Creatinine Ratio 14 (6-20) 15 (6-20) 16 (6-20) Glucose Level 101 mg/dL (70-99) 108 mg/dL (70-99) 118 mg/dL (70-99) Calcium Level 9.0 mg/dL (8.5-10.1) 8.6 mg/dL (8.5-10.1) 8.7 mg/dL (8.5-10.1) Total Bilirubin 0.3 mg/dL (0.2-1.0) 0.2 mg/dL (0.2-1.0) 0.3 mg/dL (0.2-1.0) Aspartate Amino Transf (AST/SGOT) 23 U/L (15-37) 16 U/L (15-37) 18 U/L (15-37) Alanine Aminotransferase (ALT/SGPT) 40 U/L (16-63) 38 U/L (16-63) 35 U/L (16-63) Alkaline Phosphatase 95 U/L (46-116) 87 U/L (46-116) 88 U/L (46-116) Total Protein 6.7 g/dL (6.4-8.2) 6.3 g/dL (6.4-8.2) 6.2 g/dL (6.4-8.2) Albumin 3.9 g/dL (3.4-5.0) 3.7 g/dL (3.4-5.0) 3.6 g/dL (3.4-5.0) Albumin/Globulin Ratio 1.4 (1.0-1.7) 1.4 (1.0-1.7) 1.4 (1.0-1.7) Medications Current Medications Fentanyl Citrate (Fentanyl 2ml Vial) 100 mcg 1X ONCE IVP Last administered on 04/23/21at 19:26; Start 04/23/21 at 19:15; Stop 04/23/21 at 19:16; Status DC Diphtheria/ Tetanus/Acell Pertussis (ADACEL TDap SYRINGE) 0.5 ml ONCE ONCE VAX IM Last administered on 04/23/21at 19:24; Start 04/23/21 at 19:15; Stop 04/23/21 at 19:16; Status DC Ondansetron HCl (Zofran) 4 mg 1X ONCE IVP Last administered on 04/23/21at 19:46; Start 04/23/21 at 19:45; Stop 04/23/21 at 19:46; Status DC Hydromorphone HCl (Dilaudid) 1 mg 1X ONCE IVP Last administered on 04/23/21at 19:57; Start 04/23/21 at 19:45; Stop 04/23/21 at 19:46; Status DC Ondansetron HCl (Zofran) 4 mg PRN Q6HRS PRN IVP NAUSEA/VOMITING; Start 04/23/21 at 20:00 Zolpidem Tartrate (Ambien) 5 mg PRN QHS PRN PO INSOMNIA, MAY REPEAT IN 1HR; Start 04/23/21 at 20:00 Oxycodone HCl (Roxicodone) 5 mg PRN Q3HRS PRN PO BREAKTHROUGH PAIN; Start 04/23/21 at 20:00 Oxycodone/ Acetaminophen (Percocet 5/325) 1 tab PRN Q4HRS PRN PO SEVERE PAIN; Start 04/23/21 at 20:00 Acetaminophen/ Hydrocodone Bitart (Lortab 5/325) 1 tab PRN Q4HRS PRN PO MODERATE PAIN; Start 04/23/21 at 20:00 Acetaminophen (Tylenol) 650 mg PRN Q6HRS PRN PO Headaches, Temp > 101.5F; Start 04/23/21 at 20:00 Ibuprofen (Motrin) 400 mg PRN Q6HRS PRN PO MILD PAIN 1-3; Start 04/23/21 at 20:00 Magnesium Hydroxide (Milk Of Magnesia) 2,400 mg PRN Q12HR PRN PO CONSTIPATION; Start 04/23/21 at 20:00 Morphine Sulfate (Morphine Sulfate) 5 mg PRN Q2HRS PRN IV SEVERE PAIN 7-10 Last administered on 04/23/21at 21:04; Start 04/23/21 at 20:00 Famotidine (Pepcid) 20 mg 1X ONCE PO Last administered on 04/23/21at 23:32; Start 04/23/21 at 23:30; Stop 04/23/21 at 23:31; Status DC Active Scripts Active Zofran Odt (Ondansetron) 4 Mg Tab.rapdis 4 Mg PO BID PRN Vitals/I & O Vital Sign - Last 24 Hours 04/23/21 04/23/21 04/23/21 04/23/21 18:52 18:53 19:09 19:18 Temp 98.5 98.5 Pulse 61 64 58 60 Resp 18 20 20 16 B/P (MAP) 132/56 (69) 132/56 (81) 124/60 (81) 118/63 (81) Pulse Ox 96 95 96 98 O2 Delivery Room Air Room Air Room Air Room Air 04/23/21 04/23/21 04/23/21 04/23/21 19:26 19:28 19:38 19:48 Pulse 58 58 58 Resp 12 18 14 14 B/P (MAP) 120/60 (80) 114/64 (81) 123/65 (84) Pulse Ox 100 98 98 96 O2 Delivery Room Air Room Air Room Air Room Air 04/23/21 04/23/21 04/23/21 04/23/21 19:57 19:58 20:08 20:18 Pulse 50 48 48 Resp 15 18 22 18 B/P (MAP) 118/66 (83) 129/68 (88) 113/56 (75) Pulse Ox 99 98 97 96 O2 Delivery Room Air Room Air Room Air Room Air 04/23/21 04/23/21 04/23/21 04/23/21 20:28 20:40 20:48 20:58 Pulse 44 44 44 48 Resp 19 19 17 13 B/P (MAP) 115/65 (82) 111/59 (76) 115/66 (82) 116/68 (84) Pulse Ox 100 97 99 99 O2 Delivery Room Air Room Air Room Air Room Air 04/23/21 04/23/21 04/23/21 04/23/21 21:04 21:08 21:18 21:28 Pulse 46 44 44 Resp 18 19 12 17 B/P (MAP) 118/64 (82) 104/55 (71) 109/59 (76) Pulse Ox 98 99 95 96 O2 Delivery Room Air Room Air Room Air Room Air 04/23/21 04/23/21 04/23/21 04/23/21 21:38 21:48 21:58 22:08 Pulse 44 44 64 48 Resp 15 15 19 21 B/P (MAP) 110/58 (75) 114/59 (77) 130/67 (88) 126/68 (87) Pulse Ox 95 95 95 97 O2 Delivery Room Air Room Air Room Air Room Air 04/23/21 04/23/21 04/23/21 04/24/21 22:20 22:30 22:40 01:00 Temp 97.5 97.5 Pulse 48 48 47 Resp 20 21 18 B/P (MAP) 123/68 (86) 124/66 (85) 120/65 (83) Pulse Ox 99 99 97 O2 Delivery Room Air Room Air Room Air 04/24/21 04/24/21 03:00 07:00 Temp 97.5 97.4 97.5 97.4 Pulse 47 56 Resp 18 18 B/P (MAP) 101/49 (66) 122/57 (78) Pulse Ox 98 97 O2 Delivery Room Air Room Air Intake and Output 04/23/21 04/23/21 04/24/21 15:00 23:00 07:00 Intake Total 360 ml 300 ml Balance 360 ml 300 ml Justicifation of Admission Dx: Justifications for Admission: Justification of Admission Dx: No JUNIOR SANTOYO MD Apr 24, 2021 09:00
[2021-04-24 11:00] VITALS: BP 116/61
--- NOTE | 2021-04-24 11:01 | NUR ---
poison control called and new measurements given toe 27cm; midfoot 28.5 cm and ankle 24. good pulses warm to touch. vss given asked why no antivenom given the consider it a dry bite normal labs decreasing edema and no increase in pain.
--- NOTE | 2021-04-24 11:36 | CONS ---
DATE OF CONSULTATION: 04/24/2021 REFERRING PHYSICIAN: Dr. Bal. REASON FOR CONSULTATION: Snake bite. HISTORY OF PRESENT ILLNESS: This is a 25-year-old gentleman who yesterday came in with apparently in his bathtub. He jumped in to take a shower and he got bit by what they say it was a copperhead. Poison Control was called. He did not require any antivenom. The patient has been here for now since last night and there is some swelling of the left foot in the second toe base that he got the bite, he says. The patient has no redness, there is some swelling of the foot, but otherwise there is no other complaint. Denies any shortness of breath. Denies any fever, denies any chest pain, abdominal pain. The patient did not require any antivenom. The patient is actually ready to go home. PAST MEDICAL HISTORY: Essentially unremarkable. PAST SURGICAL HISTORY: Negative other than he has had an eye and facial surgery in the past. SOCIAL HISTORY: Negative for smoking, alcohol, or illicit drug use. ALLERGIES: No known drug allergies. CURRENT MEDICATIONS: No antibiotics. PHYSICAL EXAMINATION: GENERAL: Alert, oriented gentleman, not in distress. VITAL SIGNS: Stable, afebrile. HEENT: NAD. NECK: Supple, no JVP, no lymphadenopathy. LUNGS: Clear. HEART: S1, S2 regular. ABDOMEN: Benign. EXTREMITIES: Left foot, I cannot even see the puncture wound where he got a bite, but he does have swelling of the foot and ankle, which actually swelling is decreasing according to the markings and size. NEUROLOGIC: The patient is neurologically intact. LABORATORY DATA: White count is normal. BUN and creatinine is normal. IMPRESSION: Snake bite to the left foot with local swelling., it was a dry bite. The patient can be discharged and can take some ibuprofen if needed for the swelling. Thank you very much, Dr. Bal, for giving me opportunity to participate in this patient's care. JUDITH/THOMAS HANKS: JUDITH/fredy TID: [id number]
--- NOTE | 2021-04-24 11:51 | PDOC3 ---
Discharge Summary Date of Admission: Apr 23, 2021 Date of Discharge: Apr 24, 2021 Follow-Up: 3-5 days Admitting Diagnosis comment: complications none d/c condition good complications none d/c meds see mar SEE PCP IN 3-5 DAYS D/C DIET REGULAR discharge dx Copperhead snake bite left foot Plan: admit patient for observation and keep in the ER for at least 6 hours to monitor for swelling and need for antiantivenom Tdap provided in the ED We will provide pain management No fluid to culture, no need for empiric antibiotics at this time. FEN - Regular diet PPX - compression stockings FULL CODE Dispo - observation for above Justifications for Admission Justifications for Admission Other Justification History of Present Illness History of Present Illness Identification/Chief Complaint Chief Complaint Snakebite Source Source: Patient History of Present Illness History of Present Illness Patient is a 25-year-old male with no significant past medical history, who presents to the ED via EMS for evaluation after snakebite this evening. Patient states he was getting in the bathtub around 6 PM to take a shower, when he reports seeing a copperhead snake bite his left foot. Labs on admission were largely unremarkable. He received tetanus and fentanyl in the ED. He has not received his COVID-19 vaccination. I discussion with Dr. Coulter, will admit patient for observation and pain management overnight. Past Medical History Past Medical History Denies significant past medical history Past Surgical History Past Surgical History right eye surgery, facial surgery Family History Family History Denies significant family history Social History Smoke: 1 pack per day ALCOHOL: heavy Drugs: Marijuana Current Medications Current Medications Current Medications Fentanyl Citrate (Fentanyl 2ml Vial) 100 mcg 1X ONCE IVP Last administered on 04/23/21at 19:26; Start 04/23/21 at 19:15; Stop 04/23/21 at 19:16; Status DC Diphtheria/ Tetanus/Acell Pertussis (ADACEL TDap SYRINGE) 0.5 ml ONCE ONCE VAX IM Last administered on 04/23/21at 19:24; Start 04/23/21 at 19:15; Stop 04/23/21 at 19:16; Status DC Active Scripts Active Augmentin 875-125 Tablet (Amoxicillin/Potassium Clav) 1 Each Tablet 1 Tab PO BID Zofran Odt (Ondansetron) 4 Mg Tab.rapdis 4 Mg PO BID PRN Percocet 5-325 Mg Tablet (Oxycodone/Acetaminophen) 1 Each Tablet 1 Tab PO PRN Q6HRS PRN Allergies Allergies: Coded Allergies: codeine (Verified Allergy, Intermediate, nausea and vomiting, 04/23/21) ROS Review of System GENERAL: Copperhead snake bite. No history of weight change, weakness or fevers. SKIN: No bruising, hair changes or rashes. EYES: No blurred, double or loss of vision. NOSE AND THROAT: No history of nosebleeds, hoarseness or sore throat. HEART: Denies chest pain, denies palpitations. LUNGS: Denies cough, hemoptysis, wheezing or shortness of breath. GASTROINTESTINAL: Denies nausea, vomiting, abdominal pain. GENITOURINARY: Denies dysuria, frequency, urgency, hematuria. NEUROLOGIC: Denies history of numbness, tingling, tremor or weakness. PSYCHIATRIC: Denies anxiety, denies depression. ENDOCRINE: No history of heat or cold intolerance, polyuria or polydipsia. EXTREMITIES: Right foot pain. Denies muscle weakness, joint pain, pain on walking or stiffness. Vitals Vitals Vital Signs Date Time Temp Pulse Resp B/P (MAP) Pulse Ox O2 Delivery O2 Flow Rate FiO2 04/24/21 07:00 97.4 56 18 122/57 (78) 97 Room Air 97.4 Physical Exam Physical Exam General: Alert, Oriented X3, Cooperative, no distress HEENT: PERRLA, EOMI Lungs: Clear to auscultation, Normal air movement Heart: RRR, no murmurs Cardiovascular: S1, S2 Abdomen: Normal bowel sounds, Soft, No tenderness Extremities: Left foot with minimal swelling. No clubbing, No cyanosis Skin: No rashes, No significant lesion mild swelling present Neuro: Normal speech, Normal tone, Sensation intact Psych/Mental Status: Mental status NL, Mood NL General: Alert, Oriented X3, Cooperative, No acute distress Heart: Regular rate Lungs: Clear Abdomen: Soft Extremities: No cyanosis Skin: No significant lesion FINAL DIAGNOSIS Problems Medical Problems: (1) Venomous snake bite Status: Acute Brief Hospital Course Mr. Carbajal is a 25 old [sex] who presented with [ snake bite left foot] CONDITION AT DISCHARGE: Improved Discharge Medications Current Medications Fentanyl Citrate (Fentanyl 2ml Vial) 100 mcg 1X ONCE IVP Last administered on 04/23/21at 19:26; Start 04/23/21 at 19:15; Stop 04/23/21 at 19:16; Status DC Diphtheria/ Tetanus/Acell Pertussis (ADACEL TDap SYRINGE) 0.5 ml ONCE ONCE VAX IM Last administered on 04/23/21at 19:24; Start 04/23/21 at 19:15; Stop 04/23/21 at 19:16; Status DC Ondansetron HCl (Zofran) 4 mg 1X ONCE IVP Last administered on 04/23/21at 19:46; Start 04/23/21 at 19:45; Stop 04/23/21 at 19:46; Status DC Hydromorphone HCl (Dilaudid) 1 mg 1X ONCE IVP Last administered on 04/23/21at 19:57; Start 04/23/21 at 19:45; Stop 04/23/21 at 19:46; Status DC Ondansetron HCl (Zofran) 4 mg PRN Q6HRS PRN IVP NAUSEA/VOMITING; Start 04/23/21 at 20:00 Zolpidem Tartrate (Ambien) 5 mg PRN QHS PRN PO INSOMNIA, MAY REPEAT IN 1HR; Start 04/23/21 at 20:00 Oxycodone HCl (Roxicodone) 5 mg PRN Q3HRS PRN PO BREAKTHROUGH PAIN; Start 04/23/21 at 20:00 Oxycodone/ Acetaminophen (Percocet 5/325) 1 tab PRN Q4HRS PRN PO SEVERE PAIN; Start 04/23/21 at 20:00 Acetaminophen/ Hydrocodone Bitart (Lortab 5/325) 1 tab PRN Q4HRS PRN PO MODERATE PAIN; Start 04/23/21 at 20:00 Acetaminophen (Tylenol) 650 mg PRN Q6HRS PRN PO Headaches, Temp > 101.5F; Start 04/23/21 at 20:00 Ibuprofen (Motrin) 400 mg PRN Q6HRS PRN PO MILD PAIN 1-3; Start 04/23/21 at 20:00 Magnesium Hydroxide (Milk Of Magnesia) 2,400 mg PRN Q12HR PRN PO CONSTIPATION; Start 04/23/21 at 20:00 Morphine Sulfate (Morphine Sulfate) 5 mg PRN Q2HRS PRN IV SEVERE PAIN 7-10 Last administered on 04/23/21at 21:04; Start 04/23/21 at 20:00 Famotidine (Pepcid) 20 mg 1X ONCE PO Last administered on 04/23/21at 23:32; Start 04/23/21 at 23:30; Stop 04/23/21 at 23:31; Status DC Active Scripts Active Zofran Odt (Ondansetron) 4 Mg Tab.rapdis 4 Mg PO BID PRN Vital Signs Vital Signs Date Time Temp Pulse Resp B/P (MAP) Pulse Ox O2 Delivery O2 Flow Rate FiO2 04/24/21 08:00 Room Air 04/24/21 07:00 97.4 56 18 122/57 (78) 97 97.4 Labs Laboratory Tests Test 04/23/21 18:55 04/23/21 20:54 04/24/21 02:00 White Blood Count 8.4 x10^3/uL (4.0-11.0) 7.3 x10^3/uL (4.0-11.0) 7.2 x10^3/uL (4.0-11.0) Red Blood Count 4.53 x10^6/uL (4.30-5.70) 4.50 x10^6/uL (4.30-5.70) 4.56 x10^6/uL (4.30-5.70) Hemoglobin 14.6 g/dL (13.0-17.5) 14.4 g/dL (13.0-17.5) 14.7 g/dL (13.0-17.5) Hematocrit 42.3 % (39.0-53.0) 42.4 % (39.0-53.0) 43.1 % (39.0-53.0) Mean Corpuscular Volume 93 fL (79-100) 94 fL (79-100) 95 fL (79-100) Mean Corpuscular Hemoglobin 32 pg (25-35) 32 pg (25-35) 32 pg (25-35) Mean Corpuscular Hemoglobin Concent 35 g/dL (31-37) 34 g/dL (31-37) 34 g/dL (31-37) Red Cell Distribution Width 13.0 % (11.5-14.5) 13.3 % (11.5-14.5) 13.2 % (11.5-14.5) Platelet Count 225 x10^3/uL (140-400) 200 x10^3/uL (140-400) 186 x10^3/uL (140-400) Neutrophils (%) (Auto) 64 % (31-73) 62 % (31-73) 63 % (31-73) Lymphocytes (%) (Auto) 25 % (24-48) 27 % (24-48) 25 % (24-48) Monocytes (%) (Auto) 8 % (0-9) 7 % (0-9) 7 % (0-9) Eosinophils (%) (Auto) 3 % (0-3) 4 % (0-3) 4 % (0-3) Basophils (%) (Auto) 1 % (0-3) 1 % (0-3) 1 % (0-3) Neutrophils # (Auto) 5.3 x10^3/uL (1.8-7.7) 4.5 x10^3/uL (1.8-7.7) 4.5 x10^3/uL (1.8-7.7) Lymphocytes # (Auto) 2.0 x10^3/uL (1.0-4.8) 1.9 x10^3/uL (1.0-4.8) 1.8 x10^3/uL (1.0-4.8) Monocytes # (Auto) 0.7 x10^3/uL (0.0-1.1) 0.5 x10^3/uL (0.0-1.1) 0.5 x10^3/uL (0.0-1.1) Eosinophils # (Auto) 0.3 x10^3/uL (0.0-0.7) 0.3 x10^3/uL (0.0-0.7) 0.3 x10^3/uL (0.0-0.7) Basophils # (Auto) 0.1 x10^3/uL (0.0-0.2) 0.1 x10^3/uL (0.0-0.2) 0.0 x10^3/uL (0.0-0.2) Prothrombin Time 13.6 SEC (11.7-14.0) 13.8 SEC (11.7-14.0) 13.8 SEC (11.7-14.0) Prothromb Time International Ratio 1.0 (0.8-1.1) 1.1 (0.8-1.1) 1.1 (0.8-1.1) Fibrinogen 298 mg/dL (200-440) 294 mg/dL (200-440) 289 mg/dL (200-440) Sodium Level 138 mmol/L (136-145) 138 mmol/L (136-145) 138 mmol/L (136-145) Potassium Level 3.9 mmol/L (3.5-5.1) 3.7 mmol/L (3.5-5.1) 3.5 mmol/L (3.5-5.1) Chloride Level 103 mmol/L (98-107) 104 mmol/L (98-107) 107 mmol/L (98-107) Carbon Dioxide Level 28 mmol/L (21-32) 30 mmol/L (21-32) 26 mmol/L (21-32) Anion Gap 7 (6-14) 4 (6-14) 5 (6-14) Blood Urea Nitrogen 17 mg/dL (8-26) 17 mg/dL (8-26) 16 mg/dL (8-26) Creatinine 1.2 mg/dL (0.7-1.3) 1.1 mg/dL (0.7-1.3) 1.0 mg/dL (0.7-1.3) Estimated GFR (Cockcroft-Gault) 73.2 80.9 90.3 BUN/Creatinine Ratio 14 (6-20) 15 (6-20) 16 (6-20) Glucose Level 101 mg/dL (70-99) 108 mg/dL (70-99) 118 mg/dL (70-99) Calcium Level 9.0 mg/dL (8.5-10.1) 8.6 mg/dL (8.5-10.1) 8.7 mg/dL (8.5-10.1) Total Bilirubin 0.3 mg/dL (0.2-1.0) 0.2 mg/dL (0.2-1.0) 0.3 mg/dL (0.2-1.0) Aspartate Amino Transf (AST/SGOT) 23 U/L (15-37) 16 U/L (15-37) 18 U/L (15-37) Alanine Aminotransferase (ALT/SGPT) 40 U/L (16-63) 38 U/L (16-63) 35 U/L (16-63) Alkaline Phosphatase 95 U/L (46-116) 87 U/L (46-116) 88 U/L (46-116) Total Protein 6.7 g/dL (6.4-8.2) 6.3 g/dL (6.4-8.2) 6.2 g/dL (6.4-8.2) Albumin 3.9 g/dL (3.4-5.0) 3.7 g/dL (3.4-5.0) 3.6 g/dL (3.4-5.0) Albumin/Globulin Ratio 1.4 (1.0-1.7) 1.4 (1.0-1.7) 1.4 (1.0-1.7) Laboratory Tests Test 04/23/21 18:55 04/23/21 20:54 04/24/21 02:00 White Blood Count 8.4 x10^3/uL (4.0-11.0) 7.3 x10^3/uL (4.0-11.0) 7.2 x10^3/uL (4.0-11.0) Red Blood Count 4.53 x10^6/uL (4.30-5.70) 4.50 x10^6/uL (4.30-5.70) 4.56 x10^6/uL (4.30-5.70) Hemoglobin 14.6 g/dL (13.0-17.5) 14.4 g/dL (13.0-17.5) 14.7 g/dL (13.0-17.5) Hematocrit 42.3 % (39.0-53.0) 42.4 % (39.0-53.0) 43.1 % (39.0-53.0) Mean Corpuscular Volume 93 fL (79-100) 94 fL (79-100) 95 fL (79-100) Mean Corpuscular Hemoglobin 32 pg (25-35) 32 pg (25-35) 32 pg (25-35) Mean Corpuscular Hemoglobin Concent 35 g/dL (31-37) 34 g/dL (31-37) 34 g/dL (31-37) Red Cell Distribution Width 13.0 % (11.5-14.5) 13.3 % (11.5-14.5) 13.2 % (11.5-14.5) Platelet Count 225 x10^3/uL (140-400) 200 x10^3/uL (140-400) 186 x10^3/uL (140-400) Neutrophils (%) (Auto) 64 % (31-73) 62 % (31-73) 63 % (31-73) Lymphocytes (%) (Auto) 25 % (24-48) 27 % (24-48) 25 % (24-48) Monocytes (%) (Auto) 8 % (0-9) 7 % (0-9) 7 % (0-9) Eosinophils (%) (Auto) 3 % (0-3) 4 % (0-3) 4 % (0-3) Basophils (%) (Auto) 1 % (0-3) 1 % (0-3) 1 % (0-3) Neutrophils # (Auto) 5.3 x10^3/uL (1.8-7.7) 4.5 x10^3/uL (1.8-7.7) 4.5 x10^3/uL (1.8-7.7) Lymphocytes # (Auto) 2.0 x10^3/uL (1.0-4.8) 1.9 x10^3/uL (1.0-4.8) 1.8 x10^3/uL (1.0-4.8) Monocytes # (Auto) 0.7 x10^3/uL (0.0-1.1) 0.5 x10^3/uL (0.0-1.1) 0.5 x10^3/uL (0.0-1.1) Eosinophils # (Auto) 0.3 x10^3/uL (0.0-0.7) 0.3 x10^3/uL (0.0-0.7) 0.3 x10^3/uL (0.0-0.7) Basophils # (Auto) 0.1 x10^3/uL (0.0-0.2) 0.1 x10^3/uL (0.0-0.2) 0.0 x10^3/uL (0.0-0.2) Prothrombin Time 13.6 SEC (11.7-14.0) 13.8 SEC (11.7-14.0) 13.8 SEC (11.7-14.0) Prothromb Time International Ratio 1.0 (0.8-1.1) 1.1 (0.8-1.1) 1.1 (0.8-1.1) Fibrinogen 298 mg/dL (200-440) 294 mg/dL (200-440) 289 mg/dL (200-440) Sodium Level 138 mmol/L (136-145) 138 mmol/L (136-145) 138 mmol/L (136-145) Potassium Level 3.9 mmol/L (3.5-5.1) 3.7 mmol/L (3.5-5.1) 3.5 mmol/L (3.5-5.1) Chloride Level 103 mmol/L (98-107) 104 mmol/L (98-107) 107 mmol/L (98-107) Carbon Dioxide Level 28 mmol/L (21-32) 30 mmol/L (21-32) 26 mmol/L (21-32) Anion Gap 7 (6-14) 4 (6-14) 5 (6-14) Blood Urea Nitrogen 17 mg/dL (8-26) 17 mg/dL (8-26) 16 mg/dL (8-26) Creatinine 1.2 mg/dL (0.7-1.3) 1.1 mg/dL (0.7-1.3) 1.0 mg/dL (0.7-1.3) Estimated GFR (Cockcroft-Gault) 73.2 80.9 90.3 BUN/Creatinine Ratio 14 (6-20) 15 (6-20) 16 (6-20) Glucose Level 101 mg/dL (70-99) 108 mg/dL (70-99) 118 mg/dL (70-99) Calcium Level 9.0 mg/dL (8.5-10.1) 8.6 mg/dL (8.5-10.1) 8.7 mg/dL (8.5-10.1) Total Bilirubin 0.3 mg/dL (0.2-1.0) 0.2 mg/dL (0.2-1.0) 0.3 mg/dL (0.2-1.0) Aspartate Amino Transf (AST/SGOT) 23 U/L (15-37) 16 U/L (15-37) 18 U/L (15-37) Alanine Aminotransferase (ALT/SGPT) 40 U/L (16-63) 38 U/L (16-63) 35 U/L (16-63) Alkaline Phosphatase 95 U/L (46-116) 87 U/L (46-116) 88 U/L (46-116) Total Protein 6.7 g/dL (6.4-8.2) 6.3 g/dL (6.4-8.2) 6.2 g/dL (6.4-8.2) Albumin 3.9 g/dL (3.4-5.0) 3.7 g/dL (3.4-5.0) 3.6 g/dL (3.4-5.0) Albumin/Globulin Ratio 1.4 (1.0-1.7) 1.4 (1.0-1.7) 1.4 (1.0-1.7) Allergies Allergies Coded Allergies Type Severity Reaction Last Updated Verified codeine Adverse Reaction Intermediate nausea and vomiting 04/24/21 Yes Disposition/Orders: D/C to Home Justicifation of Admission Dx: Justifications for Admission: Justification of Admission Dx: No JUNIOR SANTOYO MD Apr 24, 2021 11:51
[2021-04-24] MEDS ORDERED: ACET325T21 PO (11:52)
[2021-04-24] MEDS ORDERED: IBUP-1027 PO (11:52)
--- NOTE | 2021-04-24 11:53 | DISCH ---
DISCHARGE INSTRUCTIONS Condition on Discharge Condition on Discharge: Stable Activity After Discharge Activity Instructions for Disc: Activity as tolerated Lifting Instructions after Dis: No heavy lifting, No pulling or pushing Driving Instructions after Dis: Do not drive today Diet after Discharge Diet after Discharge: Regular Liquid Texture: Thin Liquid Wound Incision Care Wound/Incision Care: Ice to area for comfort, Keep wound elevated Checks after Discharge Checks after discharge: Check blood press - daily Contacting the DR. after DC Call your doctor for: If your condition worsens Follow-Up Follow up with: SEE YOUR PCP IN 3-7 DAYS Treatment/Equipment after DC Adaptive Equipment Issued: JUNIOR Stewart MD Apr 24, 2021 11:53
--- NOTE | 2021-04-24 12:09 | NUR ---
SW following. Discussed with RN, pt from home, room air, regular diet. RN advised no SW needs. Discharge order for home with self care.
--- NOTE | 2021-04-24 12:28 | NUR ---
resting in bed with legs elevated. wants to go home. Dr. Laws saw and said ok to go home. can take ibuprofen otc for pain and anti-inflammatory. Dr. Bal and said he can go home. saline locks removed bilaterally. dressed . reviewed restrictions such as standing for short periods ; elevate feet while resting. find a primary doctor to check the swelling in 3-7 days. dismissed to home. waiting for him at the entrance
== END 2021-04-24 12:30 | disposition home or self-care (01) ==
LOC: ER 18:52 → 4 NORTH 20:30
PROVIDERS: ADMIT Family Medicine; ATTEND Family Medicine
DX: T63.061A Toxic effect of venom of other North and South American snake, accidental (unintentional), initial encounter (principal); T80.69XA Other serum reaction due to other serum, initial encounter; D68.9 Coagulation defect, unspecified; H54.7 Unspecified visual loss; F17.210 Nicotine dependence, cigarettes, uncomplicated; Z23 Encounter for immunization; Z79.899 Other long term (current) drug therapy; Y92.002 Bathroom of unspecified non-institutional (private) residence as the place of occurrence of the external cause
CPT/HCPCS: 36415; 80053; 85025; 85384; 85610; 90471; 90715; 96374; 96375; 99284; G0378; J1170; J2270; J2405; J3010; G0379